=== PATIENT | female | born 1950 | race African-American/Black ===

== ENCOUNTER 2018-12-26 08:37 | Inpatient (IN) | payer OTHER ==
[~2018-12-26] VITALS: Ht 149.9 cm; Wt 55.8 kg
[2018-12-26 08:37] VITALS: BP 129/75
[2018-12-26] MEDS ORDERED: NORVASC5 MG PO (08:44)
[2018-12-26] MEDS ORDERED: ONDANSETRON HCL4 M2 PO (08:45)
[2018-12-26] MEDS ORDERED: SENNA8.6 MG PO (08:45)
[2018-12-26] MEDS ORDERED: SIMETHICON CHEW80 M1 PO (08:45)
[2018-12-26] MEDS ORDERED: REGLAN 10 MG TA10 MG PO (08:45)
[2018-12-26] MEDS ORDERED: LANTUS SUBQ (08:46)
[2018-12-26] MEDS ORDERED: ZANAFLEX4 MG PO (08:46)
[2018-12-26] MEDS ORDERED: AVALIDE 300-121 EACH PO (08:46)
[2018-12-26] MEDS ORDERED: ANASTROZOLE1 MG PO (08:47)
[2018-12-26] MEDS ORDERED: TRAMADOL 50 MG50 MG PO (08:47)
[2018-12-26] MEDS ORDERED: MAGOX 400400 MG PO (08:48)
[2018-12-26] MEDS ORDERED: LIPITOR 20 MG T20 M1 PO (08:48)
[2018-12-26] MEDS ORDERED: ALLOPURINOL 30300 M1 PO (08:48)
[2018-12-26] MEDS ORDERED: XIGDUO XR 5 MG1 EAC1 PO (08:48)
[2018-12-26] MEDS ORDERED: HYDROXYCHLOROQ200 M1 PO (08:49)
[2018-12-26] MEDS ORDERED: TOPROL XL100 MG PO (08:50)
[2018-12-26 08:57] LABS: HEMATOCRIT 32.4 % (37.0-47.0); HEMOGLOBIN 10.7 gm/dL (12.0-15.0); MCH 26.4 pg (26.0-34.0); MCHC 32.9 g/dL (28.0-37.0); MCV 80.3 fL (80.0-100.0); PLATELET COUNT 462 thou/uL (150-400); RBC 4.04 mil/uL (4.20-5.00); RDW 16.1 % (10.5-14.5); WBC 13.7 thou/uL (4.0-11.0)
[2018-12-26 09:10] LABS: ALBUMIN 1.9 g/dL (3.4-5.0); CREATININE 0.4 mg/dL (0.6-1.0); DIRECT BILIRUBIN 0.2 mg/dL (<0.1-0.3); TOTAL BILIRUBIN 0.3 mg/dL (<0.1-1.0); TOTAL PROTEIN 6.3 g/dL (6.4-8.2)
[2018-12-26 09:15] LABS: POTASSIUM 2.3 mmol/L (3.5-5.1)
[2018-12-26 09:48] LABS: ABSOLUTE NEUTROPHILS 11.1 thou/uL (1.4-8.2); METAMYELOCYTES 1 %
[2018-12-26 09:49] LABS: ANISOCYTOSIS 1+; PLATELET ESTIMATE INCREASED
[2018-12-26 10:07] VITALS: BP 142/42
[2018-12-26 10:37] VITALS: BP 143/58
[2018-12-26 11:15] VITALS: BP 124/70
[2018-12-26] MEDS ORDERED: ONDANSETRON HCL8 M2 PO (13:29)
[2018-12-26] MEDS ORDERED: MILK OF MA400 MG/5 M PO (13:31)
[2018-12-26] MEDS ORDERED: OXYCODONE HCL 55 MG PO (13:32)
[2018-12-26] MEDS ORDERED: ALENDRONATE SOD70 MG PO (13:33)
[2018-12-26] MEDS ORDERED: TOUJEO SOL300 UNIT/1 SUBQ (13:34)
[2018-12-26 14:20] VITALS: BP 110/57
--- NOTE | 2018-12-26 15:31 | NUR ---
PT ARRIVED FROM ED FOR HYPOGLYCEMIC, FALL, WITH HX OF PANCREATIC CA. PAIN MANAGED WITH MEDICATIONS, CONSULT WITH ONCOLOGIST NOTIFIED. DR SMALL ROUNDED UPDATED MED LIST. ADMISSION HISTORY AND ASSESMENT COMPLETED. STAND BY ASSISTANCE.FALL PRECAUTIONS IN PLACE. PT IS A STAND BY ASSISTANCE FOR WEAKNES. CALL LIGHT IN REACH. ABLE TO MAKE NEEDS KNOWN.
[2018-12-26 16:25] LABS: CALCIUM 8.9 mg/dL (8.5-10.1); CREATININE 0.4 mg/dL (0.6-1.0); MAGNESIUM 2.4 mg/dL (1.8-2.4)
[2018-12-26 16:28] LABS: POTASSIUM 2.7 mmol/L (3.5-5.1)
[2018-12-26 20:14] VITALS: BP 128/75
[2018-12-27 00:12] VITALS: BP 125/72
[2018-12-27 02:07] LABS: GLYCOHEMOGLOBIN (HGB A1C) 7.1 % (4.8-5.6)
[2018-12-27 04:02] VITALS: BP 132/72
[2018-12-27 05:49] LABS: HEMATOCRIT 29.8 % (37.0-47.0); HEMOGLOBIN 9.7 gm/dL (12.0-15.0); MCH 26.5 pg (26.0-34.0); MCHC 32.7 g/dL (28.0-37.0); MCV 81.2 fL (80.0-100.0); PLATELET COUNT 439 thou/uL (150-400); RBC 3.67 mil/uL (4.20-5.00); WBC 13.9 thou/uL (4.0-11.0)
[2018-12-27 06:02] LABS: CREATININE 0.6 mg/dL (0.6-1.0); MAGNESIUM 2.1 mg/dL (1.8-2.4); POTASSIUM 3.8 mmol/L (3.5-5.1)
[2018-12-27 07:13] LABS: ABSOLUTE NEUTROPHILS 9.7 thou/uL (1.4-8.2); ATYPICAL LYMPHS 1 %
--- NOTE | 2018-12-27 07:44 | NUR ---
PATIENT WAS NAUSEATED MOST OF THE NIGHT AN WAS UNABLE TO TAKE ANYTHIG PO DURING THE SHIFT. ANTI-EMETICS WERE GIVEN WITH NO SUCCESS. PO MEDS HELD IN THE AM. PATIENT HAD SVT IN THE PM AND WAS TREATED WITH METOPROLOL. PATIENT REFUSED CHEST PORT BLOOD DRAWS, LOVENOX, AND PO STOOL SOFTNER. PATIENT IS NOT PROGRESSING TOWARDS DISCHARGE GOALS AT THIS TIME.
[2018-12-27 08:18] VITALS: BP 113/60
--- NOTE | 2018-12-27 13:53 | NUR ---
PT ADMITTED RELATED TO LOW BLOOD SUGAR, HYPOKALEMIA D/T INADEQUATE POT INTAKE. CM REVIEWED CHART AND SPOKE WITH CARE TEAM. CM MET WITH PT AND TWO FAMILY MEMBERS AT BEDSIDE THIS DAY. PT IS A&O X4. CM ROLE INTRODUCED. PT INDICATED SHE LIVES ALONE IN AN APARTMENT WITH 13 STEPS WITH BL HANDRAILS TO ENTER AND NO STEPS INSIDE. 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 PT INDICATED NO DME OR HH HX. PT INDICATED SHE WAS INTERESTED IN HOME HEALTH SERVICES UPON [place] FOR DIEBETIC MANAGMENT AND EDUCATION. CM TO FOLLOW INDICATED WITH DC PLANNING.
[2018-12-27 15:27] VITALS: BP 144/60
--- NOTE | 2018-12-27 17:00 | NUR ---
ASSUMED CARE 0700. ALERTX4,FUSSY AND IMPATIENT. PAIN MANAGED WITH MEDICATIONS, ST WITH PAC'S IN THE 120'S MOST OF SHIFT NOTIFIED DR SMALL WITH ORDERS FOR TROPONIN, CHEST XRAY, UA, BLOOD CULTURES. PT LOW TEMP TREATED WITH TYLENOL. US WITH STAND BY- CLEARED BY PT TO BE UP AB LAYO. BS NOW AC/HS. CALL LIGHT IN REACH.
[2018-12-27 18:25] LABS: URINE BILIRUBIN NEGATIVE (Negative); URINE BLOOD NEGATIVE (Negative); URINE CLARITY CLEAR; URINE COLOR YELLOW; URINE GLUCOSE-RANDOM* 1+ (Negative); URINE KETONES NEGATIVE (Negative); URINE LEUKOCYTES-REFLEX NEGATIVE (Negative); URINE NITRITE-REFLEX NEGATIVE (Negative); URINE PROTEIN (DIPSTICK) NEGATIVE (Negative); URINE UROBILINOGEN 0.2 E.U./dl (0.2-1.0)
[2018-12-27 19:23] VITALS: BP 130/65
--- NOTE | 2018-12-28 01:55 | NUR ---
PT GIVEN OXYCODONE Q4 FOR PAIN PT SLEPT ON AND OFF DURING THE NIGHT PT USED CALL LIGHT EFFECTIVELY NO ISSUES OVERNIGHT.
[2018-12-28 03:32] VITALS: BP 107/47
[2018-12-28 11:01] LABS: HEMATOCRIT 33.1 % (37.0-47.0); HEMOGLOBIN 10.5 gm/dL (12.0-15.0); MCH 26.1 pg (26.0-34.0); MCHC 31.8 g/dL (28.0-37.0); MCV 82.1 fL (80.0-100.0); RBC 4.04 mil/uL (4.20-5.00); RDW 16.5 % (10.5-14.5); WBC 20.5 thou/uL (4.0-11.0)
[2018-12-28 11:07] LABS: CALCIUM 8.8 mg/dL (8.5-10.1); CREATININE 0.6 mg/dL (0.6-1.0); MAGNESIUM 1.9 mg/dL (1.8-2.4); POTASSIUM 5.2 mmol/L (3.5-5.1)
[2018-12-28 14:53] VITALS: BP 118/54
--- NOTE | 2018-12-28 14:54 | NUR ---
CARE TEAM INDICATED THAT PT WILL LIKELY BE MEDICALLY STABLE TO DISCHARGE HOME TOMORROW Monday12/29/18. PT AND FAMILY REQUESTING HH SERVICES UPON [place]. CM SENT REFERRAL TO [facility] FOR PT, OT, AND NURISNG (CONTINUED DIEBETIC ED). THEY ARE ABLE TO ACCEPT PT FOR HH SERVICES. FAX ORDERS TO . PT HAS ALL RECOMMENDED DME. IT IS NOT ANTICPATED THAT PT WILL HAVE ANY OTHER NEEDS UPON [place]. CM ABLE TO ASSIT SHOULD ANY NEEDS ARISE.
--- NOTE | 2018-12-28 15:25 | EKG ---
[address] [address] ELECTROCARDIOGRAM REPORT Name: EMY SMITH Room #: 456-P ADM IN M.R.#: [id number] ������������������ Admission: 12/26/18 ������������������ Attend Phys: Mendoza Crisostomo MD Discharge: ������������������ Date of : 54 Report #: [id number] ����������������������������������������������������������������� [id number] THIS REPORT FOR: //name// [facility] Test Date: 2018-12-27 Test Time: 20:16:58 Pat Name: EMY SMITH Department: Room: 456 P Gender: F Athlete Manager: Janeen FRANCISCO : 1950 Requested By: Mendoza Crisostomo Order Number: [id number] MD: Jan Kruse Measurements Intervals [place] Rate: 113 P: 58 [place]: 130 QRS: -23 QRSD: 80 T: 58 QT: 319 QTc: 438 Interpretive Statements Sinus tachycardia Atrial premature complexes Probable inferior infarct, old Probable anteroseptal infarct, old No previous ECG available for comparison Electronically Signed On 12-28-2018 15:25:40 CDT by Jan Kruse [email or web address] ��������������������������������������������� <ELECTRONICALLY SIGNED> ���������������������������������������� By: Jan Kruse MD ��������������������������������������������� 12/28/18 1525 15 15 Jan Kruse MD /EPI
[2018-12-28 15:28] VITALS: BP 111/60
--- NOTE | 2018-12-28 18:27 | NUR ---
PROGRESSING TOWARDS GOALS. FOOD AND FLUIDS ENCOURAGED TO MAINTAIN STABLE BLOOD SUGARS. BM TODAY. SLEPT WELL THIS AFTERNOON. UP AB LAYO. CALL LIGHT IN REACH. POSSIBLE DC TOMORROW.
[2018-12-28 20:02] VITALS: BP 131/78
[2018-12-28 20:40] VITALS: BP 115/58
--- NOTE | 2018-12-29 04:52 | NUR ---
PATIENT ALERT AND ORIENTED X4. UP ADLIB IN ROOM. MEDICATED FOR PAIN X1 AT TIME OF NOTE. ALSO MEDICATED FOR ANXIETY. NEW ORDERS FOR IVABX ADMINISTERED. BS MONITORED PER ORDER. PATIENT TRANSFERRED FROM ROOM 456 VIA WHEELCHAIR WITH RN AT APPROX. 2015. COOPERATIVE WITH CARE. POSSIBLE DISCHARGE TODAY. TRACE OF EDEMA TO FEET. RESTING QUIETLY AT TIME OF NOTE. WILL MONITOR.
[2018-12-29 06:44] LABS: HEMATOCRIT 27.7 % (37.0-47.0); MCH 26.2 pg (26.0-34.0); MCHC 32.4 g/dL (28.0-37.0); MCV 80.9 fL (80.0-100.0); RBC 3.43 mil/uL (4.20-5.00); RDW 16.4 % (10.5-14.5); WBC 18.5 thou/uL (4.0-11.0)
[2018-12-29 06:55] LABS: CALCIUM 8.2 mg/dL (8.5-10.1); CREATININE 0.5 mg/dL (0.6-1.0); MAGNESIUM 1.6 mg/dL (1.8-2.4); POTASSIUM 4.9 mmol/L (3.5-5.1)
[2018-12-29 07:45] VITALS: BP 122/55
--- NOTE | 2018-12-29 16:17 | NUR ---
PATIENT CARE WAS ASSUMED AT 0715.PATIENT IS ALERT AND ORIENTED X4.PATIENT HAS PAIN IN THE AM WILL GIVE PAIN MEDS WITH MORNING MED PASS.PT HAS SOME CONCERNS WITH HER MEDICATIONS AND WHY SHE WAS TAKING SOME OF HER MEDICATIONS, AND WANT THEY ARE FOR.WILL CONTACT THE HOSPITALIST WITH PATIENT'S CONCERNS.FAMILY HAD THE SAME CONCERNS PATIENT, WILL UPDATE THE FAMILY UPON PATIENT'S REQUEST.IV IS INTACT, AND SALINE LOCKED.PATIENT IS UP AB LAYO.CALL LIGHT, PHONE, AND PERSONAL BELONGINGS ARE WITHIN REACH.
[2018-12-29 19:24] VITALS: BP 117/52
--- NOTE | 2018-12-30 03:35 | NUR ---
PATIENT ALERT AND ORIENTED X4. UP ADLIB IN ROOM. BS MONITORED PER ORDER. MEDICATED WITH ALPRAZOLAM AND OXY X1 DURING THE NIGHT. IV ABX INFUSED W/O COMPLICATION. RESTING QUIELTY AT TIME OF NOTE. WILL MONITOR.
[2018-12-30 06:33] LABS: HEMATOCRIT 26.6 % (37.0-47.0); HEMOGLOBIN 8.7 gm/dL (12.0-15.0); MCH 26.2 pg (26.0-34.0); MCHC 32.7 g/dL (28.0-37.0); MCV 80.3 fL (80.0-100.0); RBC 3.31 mil/uL (4.20-5.00); RDW 16.5 % (10.5-14.5); WBC 17.8 thou/uL (4.0-11.0)
[2018-12-30 06:48] LABS: CALCIUM 8.1 mg/dL (8.5-10.1); CREATININE 0.5 mg/dL (0.6-1.0); MAGNESIUM 1.7 mg/dL (1.8-2.4); POTASSIUM 4.3 mmol/L (3.5-5.1)
--- NOTE | 2018-12-30 18:17 | NUR ---
ASSUMED CARE OF PATIENT AT 0715, PATIENT ALERT AND ORIENTED X 4. PATIENT UP AD LAYO IN HER ROOM, SHE DID AMBULATE TO ACTIVITY ROOM W/O DIFFICULTY. PATIENT DENIES PAIN THIS SHIFT. ORIANA HAS RIGHT CHEST PORT A CATH IN PLACE, SHE RECEIVED 2 ANTIOBIOTICS, VANCO ROUGH DRAWN PER NURSING AT 1150. BLOOD SUGAR MONITORING ORDERED AND INSULIN GIVEN PER LOW DOSE SLIDING SCALE, THIS RN NOTIFIED DR SMALL OF BLOOD SUGAR RUNNING 200'S, ORDERS PUT IN FOR LANTUS AT BEDTIME, AND LABS IN AM. PATIENT ENJOYED PLAYING CARDS THIS AFTERNOON. PATIENT C/O PAIN WITH ABDOMEN AREA, WILL GIVE OXYCODONE 5 MG 1 TABLET FOR PAIN AT THIS TIME. WILL CONTINUE TO MONITOR.
[2018-12-30 20:05] VITALS: BP 119/71
--- NOTE | 2018-12-31 03:37 | NUR ---
PATIENTS CARES WERE ASSUMED AT SHIFT CHANGE. PATIENT WAS ASSESSED AND MEDS WERE PASSED. PATIENT WAS FUSSY WITH THIS NURSE FROM BEGIN. IT ALL STARTED WHEN THIS NURSE ASKED ABOUT HER HISTORY OF CHEMO TREATMENT AND WERE DOES SHE GO. SHE STATED SHE REFUSED TO ANSWER QUESTIONS THAT ARE IN HER CHART. SHE WAS UPSET THAT HER VANCO WAS RUNNING AT 2325. I TOLD PATIENT THAT MED WAS DUE AT 2300 AND IT WOULD TAKE ABOUT AN HOUR AND A HALF. ASKED HER IF SHE WANTED HER XANAX TO HELP HER RELAX. SHE SNAPPED "NO, JUST GIVE ME MY PAIN PILL." CONTINUED TO PLAY ONE MAN DOWN POSITION IN HOPE TO BE ABLE TO GET HER TO FEEL COMFORTABLE. HOURLY ROUNDING DONE. PATIENT DID APPER TO BE SLEEPING MOST OF THIS SHIFT. THE BED IS IN A LOW AND LOCKED POSITION AND THE BED ALARM IS ON,
[2018-12-31 05:52] LABS: HEMATOCRIT 28.4 % (37.0-47.0); HEMOGLOBIN 9.2 gm/dL (12.0-15.0); MCH 26.1 pg (26.0-34.0); MCHC 32.4 g/dL (28.0-37.0); MCV 80.8 fL (80.0-100.0); RBC 3.51 mil/uL (4.20-5.00); RDW 16.6 % (10.5-14.5); WBC 17.4 thou/uL (4.0-11.0)
[2018-12-31 06:08] LABS: CALCIUM 8.6 mg/dL (8.5-10.1); CREATININE 0.4 mg/dL (0.6-1.0); MAGNESIUM 1.6 mg/dL (1.8-2.4); POTASSIUM 4.2 mmol/L (3.5-5.1)
[2018-12-31 08:31] VITALS: BP 118/65
--- NOTE | 2018-12-31 08:41 | NUR ---
ASSUMED PT CARE AT 0700. ASSESSMENT COMPLETED AND IS CHARTED. VSS. PT IS AWAKE, ALERT/ORIENTED X4. STATES SHE IS ALWAYS IN PAIN AND DOESN'T CARE IF SHE TAKES THE PAIN MEDICATION. PT VOICES NO CONCERNS AT THIS TIME. BLOOD GLUCOSE 202. WILL ADMINISTER INSULIN ORDERED. NO OTHER IMMEDIATE CONCERNS, WILL CONTINUE WITH CURRENT CARE.
[2018-12-31] MEDS ORDERED: PROBIOTIC1 EAC1 PO (14:03)
[2018-12-31] MEDS ORDERED: PROTONIX40 M1 PO (14:03)
[2018-12-31] MEDS ORDERED: LEVAQUIN 750 M750 MG PO (14:03)
[2018-12-31] MEDS ORDERED: NOVOLOG100 UNIT/1 SUBQ (14:03)
[2018-12-31 15:19] VITALS: BP 118/54
--- NOTE | 2018-12-31 15:23 | NUR ---
DISCHARGE NOTE: SW reviewed chart and spoke with nursing and attending physician. Pt was transferred to [facility] from and is medically stable for discharge home today with services. SW notified intake of [facility] of discharge orders. Pt's family will provide transportation home. No additional SW needs identified at this time, but is available to assist should needs arise.
--- NOTE | 2018-12-31 16:56 | NUR ---
DEACCESSED PORT. DISMISSED PT IN STABLE CONDITION VIA WHEELCHAIR TO HOME WITH HOME HEALTH.
== END 2018-12-31 16:30 | disposition home health service (06) | DRG 637 ==
LOC: ER 08:37 → 4W 09:46 → EROBS 09:46 → 4W 10:36 → SICU 12-28 20:30 → ENTRNSPT 12-31 16:10 → SICU 12-31 16:30 → EDTRNSPT 12-31 16:31
PROVIDERS: Emergency Medicine; Nurse Practitioner; ADMIT Internal Medicine
DX: E11.649 Type 2 diabetes mellitus with hypoglycemia without coma (principal); E43 Unspecified severe protein-calorie malnutrition; C78.7 Secondary malignant neoplasm of liver and intrahepatic bile duct; C25.9 Malignant neoplasm of pancreas, unspecified; R65.10 Systemic inflammatory response syndrome (SIRS) of non-infectious origin without acute organ dysfunction; K21.9 Gastro-esophageal reflux disease without esophagitis; F17.210 Nicotine dependence, cigarettes, uncomplicated; E78.5 Hyperlipidemia, unspecified; E87.6 Hypokalemia; E11.65 Type 2 diabetes mellitus with hyperglycemia; E83.42 Hypomagnesemia; I10 Essential (primary) hypertension; M06.9 Rheumatoid arthritis, unspecified; M32.9 Systemic lupus erythematosus, unspecified; Z66 Do not resuscitate; D63.8 Anemia in other chronic diseases classified elsewhere; R13.10 Dysphagia, unspecified; Z79.4 Long term (current) use of insulin; Z85.3 Personal history of malignant neoplasm of breast; Z90.710 Acquired absence of both cervix and uterus; Z92.21 Personal history of antineoplastic chemotherapy; Z79.899 Other long term (current) drug therapy; Z68.24 Body mass index [BMI] 24.0-24.9, adult
CPT/HCPCS: 10045; 15002

== ENCOUNTER 2019-02-01 09:54 | Emergency (ER) | payer OTHER, MEDICARE ==
[~2019-02-01] VITALS: Ht 149.9 cm; Wt 47.2 kg
[~2019-02-01 09:54] MED LIST: ALENDRONATE SOD70 MG PO; ALLOPURINOL 30300 M1 PO; ANASTROZOLE1 MG PO; AVALIDE 300-121 EACH PO; HYDROXYCHLOROQ200 M1 PO; LANTUS SUBQ; LEVAQUIN 750 M750 MG PO; LIPITOR 20 MG T20 M1 PO; MAGOX 400400 MG PO; MILK OF MA400 MG/5 M PO; NORVASC5 MG PO; NOVOLOG100 UNIT/1 SUBQ; ONDANSETRON HCL4 M2 PO; ONDANSETRON HCL8 M2 PO; OXYCODONE HCL 55 MG PO; PROBIOTIC1 EAC1 PO; PROTONIX40 M1 PO; REGLAN 10 MG TA10 MG PO; SENNA8.6 MG PO; SIMETHICON CHEW80 M1 PO; TOPROL XL100 MG PO; TOUJEO SOL300 UNIT/1 SUBQ; TRAMADOL 50 MG50 MG PO; XIGDUO XR 5 MG1 EAC1 PO; ZANAFLEX4 MG PO
[2019-02-01] MEDS ORDERED: VICTOZA0.6 MG/0.1 SUBQ (10:18)
[2019-02-01 10:50] LABS: HEMATOCRIT 29.8 % (37.0-47.0); HEMOGLOBIN 9.5 gm/dL (12.0-15.0); MCH 25.9 pg (26.0-34.0); MCHC 31.9 g/dL (28.0-37.0); MCV 81.2 fL (80.0-100.0); PLATELET COUNT 457 thou/uL (150-400); RBC 3.67 mil/uL (4.20-5.00); RDW 19.4 % (10.5-14.5); WBC 19.9 thou/uL (4.0-11.0)
[2019-02-01 10:58] LABS: ANION GAP 11 mmol/L (7-16); BUN 9 mg/dL (7-18); CALCIUM 9.2 mg/dL (8.5-10.1); CHLORIDE 101 mmol/L (98-107); CO2 25 mmol/L (21-32); CREATININE 0.5 mg/dL (0.6-1.0); GLUCOSE 149 mg/dL (74-106); SODIUM 137 mmol/L (136-145)
[2019-02-01 11:01] LABS: POTASSIUM 2.9 mmol/L (3.5-5.1)
[2019-02-01 11:07] LABS: ALBUMIN 1.9 g/dL (3.4-5.0); SGOT 36 U/L (15-37); SGPT 38 U/L (30-65); TOTAL BILIRUBIN 0.4 mg/dL (<0.1-1.0); TOTAL PROTEIN 6.6 g/dL (6.4-8.2); TROPONIN-I <0.06 ng/mL (<0.06)
[2019-02-01 11:51] LABS: URINE BLOOD NEGATIVE (Negative); URINE CLARITY CLEAR; URINE COLOR YELLOW; URINE GLUCOSE-RANDOM* 3+ (Negative); URINE KETONES 3+ (Negative); URINE LEUKOCYTES-REFLEX NEGATIVE (Negative); URINE NITRITE-REFLEX NEGATIVE (Negative); URINE PROTEIN (DIPSTICK) 1+ (Negative); URINE SPECIFIC GRAVITY 1.025 (1.005-1.035); URINE UROBILINOGEN 0.2 E.U./dl (0.2-1.0)
[2019-02-01 11:56] LABS: ICTOTEST (BILI CONFIRMATORY) Negative (Negative); URINE BILIRUBIN NEGATIVE (Negative)
[2019-02-01 12:12] LABS: SQUAMOUS >10 Many /LPF (0-3)
[2019-02-01 12:13] LABS: BACTERIA-REFLEX 1-9 Few /HPF (None Seen); CASTS None Seen /LPF (None Seen); CRYSTALS None Seen /LPF (None Seen); URINE RBC None Seen /HPF (0-2); URINE WBC-REFLEX 0-5 Rare /HPF (0-5)
--- NOTE | 2019-02-01 12:19 | EKG ---
[place] [address] [facility] [place] [address] ELECTROCARDIOGRAM REPORT Name: EMY SMITH [id number] ������������������ Admission: 02/01/19 ������������������ Attend Phys: Discharge: ������������������ Date of : 54 Report #: [id number] ����������������������������������������������������������������� [id number] THIS REPORT FOR: //name// [facility] ED Test Date: 2019-02-01 Test Time: 10:42:50 Pat Name: EMY SMITH Department: Room: Gender: F Accountant Assistant: KKODJOVI : 1950 Requested By: Daisy Cartagena Order Number: [id number] MD: Gurpreet Holland Measurements Intervals [place] Rate: 111 P: [place]: QRS: -24 QRSD: 70 T: 172 QT: 311 QTc: 423 Interpretive Statements Sinus tachycardia with occasional atrial premature complexes Inferior infarct, old Anterior infarct, old Compared to ECG 12/27/2018 20:16:58 Sinus tachycardia no longer present Poor R wave progression is now present Electronically Signed On 02-01-2019 12:19:00 CDT by Gurpreet Holland [email or web address] ��������������������������������������������� <ELECTRONICALLY SIGNED> ���������������������������������������� By: Gurpreet Holland MD, [facility] ��������������������������������������������� 02/01/19 1219 104 41 Gurpreet Holland MD, [facility] /EPI
[2019-02-01 13:15] VITALS: BP 137/63
[2019-02-01 13:24] LABS: ABSOLUTE NEUTROPHILS 18.1 thou/uL (1.4-8.2)
[2019-02-01 13:25] LABS: ANISOCYTOSIS 1+; POIKILOCYTOSIS SLIGHT
[2019-02-01 13:26] LABS: LARGE PLATELETS OCCASIONAL; SCHISTOCYTES OCCASIONAL; TARGET CELLS OCCASIONAL
== END 2019-02-01 18:36 | disposition home or self-care (01) ==
LOC: ER 09:54
PROVIDERS: Nurse Practitioner Family
DX: E87.6 Hypokalemia (principal); R53.1 Weakness; D72.829 Elevated white blood cell count, unspecified; E11.9 Type 2 diabetes mellitus without complications; E78.5 Hyperlipidemia, unspecified; I10 Essential (primary) hypertension; M06.9 Rheumatoid arthritis, unspecified; M32.9 Systemic lupus erythematosus, unspecified; F17.210 Nicotine dependence, cigarettes, uncomplicated; Z90.710 Acquired absence of both cervix and uterus; Z85.3 Personal history of malignant neoplasm of breast; Z85.07 Personal history of malignant neoplasm of pancreas; Z79.4 Long term (current) use of insulin; W18.39XA Other fall on same level, initial encounter; Y93.89 Activity, other specified; Y92.89 Other specified places as the place of occurrence of the external cause; Y99.8 Other external cause status